=== PATIENT | female | born 1965 | race Two or more races ===

== ENCOUNTER 2024-02-25 13:58 | Emergency (ER) | payer OTHER ==
[~2024-02-25] VITALS: Ht 167.6 cm; Wt 91.0 kg
[2024-02-25 14:20] VITALS: O2SAT 98
[2024-02-25 17:35] VITALS: BP 152/89; PULSE 68; RESP 18; TEMP 37.05852; O2SAT 99
== END 2024-02-25 17:37 | disposition home or self-care (01) ==
LOC: ER 13:58
DX: S83.8X1A Sprain of other specified parts of right knee, initial encounter (principal); E11.9 Type 2 diabetes mellitus without complications; I10 Essential (primary) hypertension; Z90.49 Acquired absence of other specified parts of digestive tract; W01.0XXA Fall on same level from slipping, tripping and stumbling without subsequent striking against object, initial encounter; Y93.89 Activity, other specified; Y92.89 Other specified places as the place of occurrence of the external cause; Y99.8 Other external cause status
CPT/HCPCS: 73560; 99283